=== PATIENT | female | born 1975 | race Two or more races ===

== ENCOUNTER 2023-07-15 10:44 | Emergency (ER) | payer OTHER ==
[~2023-07-15] VITALS: Ht 162.6 cm; Wt 81.6 kg
[2023-07-15] MEDS ORDERED: LEVOTHYROXINE150 MC1 PO (11:45)
[2023-07-15] MEDS ORDERED: LIPITOR20 MG PO (11:45)
[2023-07-15 13:19] LABS: HEMATOCRIT 40.2 % (36.0-45.00); HEMOGLOBIN 13.9 g/dL (12.0-15.00); MEAN CELL VOLUME 89.3 fL (80.00-100.00); MEAN CORPUSCULAR HEMOGLOBIN 30.9 pg (27.00-32.0); MEAN CORPUSCULAR HGB CONC 34.6 g/dl (32.0-36.0); PLATELET COUNT 420 K/uL (150-450)
[2023-07-15 14:14] LABS: ABG PH 7.559 (7.35-7.45); ABG PO2 112.2 mmHg (80-100); ABG pCO2 28.5 mmHg (35-45); BASE EXCESS 3.7 mmol/l; BICARBONATE 24.9 mmol/l (23-25); Tco2 25.8 mmol/l; allen test SATISFACTORY; o2 21 %; puncture site RADIAL RIGHT
[2023-07-15 14:15] LABS: CALCIUM 9.8 mg/dL (8.5-10.1); CREATININE SERUM 0.73 mg/dL (0.55-1.02); GFR 85.83; POTASSIUM 3.44 mEq/L (3.5-5.1)
== END 2023-07-15 15:08 | disposition home or self-care (01) ==
LOC: ER 10:45
PROVIDERS: General Practice
DX: R50.9 Fever, unspecified (principal); Z91.038 Other insect allergy status; Z20.822 Contact with and (suspected) exposure to COVID-19

== ENCOUNTER 2024-06-14 07:34 | Emergency (ER) | payer OTHER ==
[~2024-06-14] VITALS: Ht 167.6 cm; Wt 99.8 kg
[~2024-06-14 07:34] MED LIST: LEVOTHYROXINE150 MC1 PO; LIPITOR20 MG PO
[2024-06-14 07:48] VITALS: BP 121/75; O2SAT 98
[2024-06-14] MEDS ORDERED: KETOROLAC TROMETHAMINE 30 MG VIAL IM STA (08:40)
[2024-06-14] MEDS ORDERED: GUAIFENESIN 200 MG/10 ML BLIST.PACK PO STA (08:40)
[2024-06-14 09:41] LABS: HEMATOCRIT 45.3 % (36.0-45.00); HEMOGLOBIN 15.7 g/dL (12.0-15.00); MEAN CELL VOLUME 88.6 fL (80.00-100.00); MEAN CORPUSCULAR HEMOGLOBIN 30.6 pg (27.00-32.0); MEAN CORPUSCULAR HGB CONC 34.5 g/dl (32.0-36.0); PLATELET COUNT 356 K/uL (150-450); RED BLOOD COUNT 5.12 M/uL (4.00-6.00); RED CELL DISTRIBUTION WIDTH 13.8 % (11.5-14.5)
== END 2024-06-14 11:09 | disposition home or self-care (01) ==
LOC: ER 07:36
PROVIDERS: General Practice
DX: R51.9 Headache, unspecified (principal); Z91.018 Allergy to other foods; R05.8 Other specified cough; Z20.822 Contact with and (suspected) exposure to COVID-19
CPT/HCPCS: 36415; 96372; 99282; J1885

== ENCOUNTER 2024-06-20 11:33 | Emergency (ER) | payer OTHER ==
[~2024-06-20] VITALS: Ht 167.6 cm; Wt 95.3 kg
[2024-06-20] MEDS ORDERED: DEXAMETHASONE SODIUM PHOSPHATE 4 MG/ML VIAL IM ONE (14:00)
[2024-06-20] MEDS ORDERED: DIPHENHYDRAMINE HCL 50 MG/ML VIAL 1ML IM ONE (14:00)
[2024-06-20] MEDS ORDERED: MEDROLPACK PO (16:39)
== END 2024-06-20 17:49 | disposition home or self-care (01) ==
LOC: ER 11:35
DX: A49.3 Mycoplasma infection, unspecified site (principal); Z91.038 Other insect allergy status; E03.9 Hypothyroidism, unspecified

== ENCOUNTER 2025-01-14 16:37 | Emergency (ER) | payer OTHER ==
[~2025-01-14] VITALS: Ht 167.6 cm; Wt 99.8 kg
[~2025-01-14 16:37] MED LIST changes: +MEDROLPACK PO
[2025-01-14] MEDS ORDERED: IBUPROFEN800 MG PO (18:11)
[2025-01-14] MEDS ORDERED: KETOROLAC TROMETHAMINE 60 MG VIAL IM ONE (18:15)
[2025-01-14] MEDS ORDERED: DEXAMETHASONE SODIUM PHOSPHATE 4 MG/ML VIAL IM ONE (18:15)
== END 2025-01-14 18:26 | disposition home or self-care (01) ==
LOC: ER 16:55
DX: M75.52 Bursitis of left shoulder (principal); E03.8 Other specified hypothyroidism; E78.49 Other hyperlipidemia; Z91.030 Bee allergy status